=== PATIENT | female | born 1950 | race Caucasian/White ===

== ENCOUNTER 2017-02-13 08:19 | Emergency (ER) | payer OTHER ==
[2017-02-13] MEDS ORDERED: ZOFRAN ODT PO ONE (08:45)
--- NOTE | 2017-02-13 08:50 | PROVIDER DOCUMENTATION ---
HPI-Headache - General Chief Complaint: Numbness Stated Complaint: LEFT ARM NUMBNESS,NAUSEA Time Seen by Provider: 02/13/17 08:35 Source: patient Allergies/Adverse Reactions: Patient Allergies Allergy/AdvReac Type Severity Reaction Status Date / Time sumatriptan [From Imitrex] AdvReac Unknown Verified 02/13/17 16:02 sumatriptan succinate * AdvReac Unknown Verified 02/13/17 16:02 [From Imitrex] Home Medications: Home Medication List Medication Instructions Recorded Confirmed Last Taken Type No Home Medications 02/13/17 02/13/17 Unknown History - History of Present Illness-Headache Nature of Presenting Problem: Pt has always had headaches, but they became more prominent after she reached menopause at age 52. She usually just takes otc meds for them but this headache is a 10/10 headache and she has numbness of the left arm but normal strength. She freqeuntly has an aura prior ot with the headache but was asleep last night when her MALONE started at 0200. She is just now getting set up to get a doctor as she will be 67 in 9 days. Review of Systems - Adult - REVIEW OF SYSTEMS - ADULT Constitutional: denies: fever Eyes: reports: other (sort of always has a drppy left eyelid). denies: no symptoms reported, discharge, blurred vision Ears, Nose, Mouth & Throat: denies: ear pain, nose pain, throat pain Cardiovascular: denies: chest pain, heart murmur, syncope Respiratory: denies: chronic cough, pleurisy, shortness of breath Gastrointestinal: denies: abdominal pain, constipation, diarrhea, nausea, vomiting Genitourinary: denies: discharge, hematuria, urgency Musculoskeletal: denies: bone pain, back pain, joint pain, neck pain Integumentary: denies: itching, mole changes, rash Neurological: reports: headache/migraines, paresthesia. denies: dizziness/ vertigo, loss of balance, syncope, tremors Psychiatric: reports: no symptoms reported Endocrine: denies: goiter, cold intolerance, heat intolerance Hematologic/Lymphatic: denies: low blood count, lymphedema Allergic/Immunologic: denies: eczema, frequent infections, hives Past History - Adult - PAST MEDICAL HISTORY-ADULT Review of Records: reports: Nursing Assessment Review, Medications Reviewed Major Childhood Illnesses: reports: denies history Cardiovascular: reports: denies history Respiratory: reports: denies history Gastrointestinal: reports: denies history Obstetrical/Gynecological: reports: denies history Genitourinary: reports: denies history Musculoskeletal: reports: denies history Neurological: reports: TIA Endocrine/Immune: reports: denies history Other Conditions: reports: denies history - PRIOR SURGERIES/PROCEDURES Surgical/Procedure History: reports: BTL - FAMILY HISTORY Family History: reviewed, not pertinent Physical Exam- Neurological - Physical Exam-Neuro Initial Vital Signs Reviewed: Yes General Appearance: alert, no apparent distress Eye Exam: bilateral eye: normal inspection, PERRL, EOMI HENMT: normocephalic/atraumatic, moist mucous membranes, normal ENT inspection, pharynx normal Head Injury: no evidence of injury Neck: non-tender, full range of motion, supple Respiratory: chest non-tender, lungs clear, normal breath sounds, no pleuratic chest pain, no respiratory distress, no accessory muscle use Cardiovascular: normal peripheral pulses, regular rate, rhythm, no edema, no gallop, no JVD, no murmur Abdominal Exam: normal bowel sounds, non tender, soft, no organomegaly Lymphatic: 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 Exam: normal hearing, normal speech, PERRL Coordination/Gait: normal gait Motor/Sensory: no motor deficit, no sensory deficit, other (left arm/hand paresthesias) Neurologic: catheter finisher and inspector II-XII nml as tested, grossly normal, no motor/sensory deficits - Glascow Coma Scale Best Eye Response: (4) open spontaneously Best Verbal Response: (5) oriented Best Motor Response: (6) obeys commands Total Glascow Score: 15 Departure - Departure Time of Disposition Order: 16:20 DIAGNOSIS: Angina at rest Migraine Qualifiers: Migraine type: unspecified Status migrainosus presence: without status migrainosus Intractability: not intractable Qualified Code(s): G43.909 - Migraine, unspecified, not intractable, without status migrainosus Disposition: HOME 01 Certified Medical Emergency: Emergent Condition: Stable Additional Instructions: Fu for coronary evaluation from positive stress test from imitrex [place] [address] Mathias ED Follow Up Instructions: You have been treated by a care provider in the Emergency Department. These instructions are being provided to you so you can have an understanding of how to care for yourself upon discharge. Upon discharge from the Emergency Department, you are responsible for making arrangements for follow-up care by a physician of your choice. Take all prescribed medications as directed. Return to the Emergency Department immediately for any new or worsening symptoms. You may call the Physician Referral phone number at [phone] to obtain a list of Physicians who are taking new patients.
[2017-02-13 08:59] LABS: URINE CULTURE NEEDED? NO; URINE MICRO REVIEW NEEDED? NO; URINE SOURCE CLEAN CATCH
[2017-02-13 09:05] LABS: BILIRUBIN URINE NEGATIVE (NEGATIVE); BLOOD URINE NEGATIVE (NEGATIVE); COLOR STRAW; GLUCOSE URINE NEGATIVE (NEGATIVE); LEUKOCYTES URINE NEGATIVE (NEGATIVE); NITRITE URINE NEGATIVE (NEGATIVE); PROTEIN URINE NEGATIVE (NEGATIVE); SP GRAVITY URINE 1.001; TURBIDITY URINE CLEAR (CLEAR); UROBILINOGEN URINE NORMAL (NORMAL)
[2017-02-13 09:27] LABS: MANUAL DIFF NEEDED? NO
[2017-02-13 09:28] LABS: BASO% 0.6 % (0.0-0.8); EOS# 0.25 X1000 (0.0-0.7); EOS% 3.6 % (0.0-10.0); HEMOGLOBIN 13.9 g/dL (12.0-16.0); IMM GRAN# 0.03 X1000 (0.0-0.04); IMM GRAN% 0.4 % (0.0-0.5); LYMPH# 3.19 X1000 (1.2-3.4); LYMPH% 46.1 % (20.5-51.1); MCH 29.5 PG (27-31); MCHC 33.9 g/dL (33-37); MONO# 0.78 X1000 (0.11-0.59); MONO% 11.3 % (1.7-9.3); MPV 9.3 FL (7.4-10.4); PLT 306 X1000 (130-400); RBC 4.71 XMIL (4.2-5.4)
[2017-02-13 09:41] LABS: UR EPITHELIAL CELLS >10 /HPF (<10); URINE BACTERIA NEGATIVE /HPF; URINE RBC <10 /HPF (<10); URINE WBC <10 /HPF (<10)
[2017-02-13] MEDS ORDERED: IMITREX SUBQ ONE (09:41)
[2017-02-13 09:48] LABS: AGAP 13; ALKALINE PHOSPHATASE 103 U/L (32-104); BUN 17 mg/dL (8-22); CALCIUM 8.9 mg/dL (8.8-10.2); CHLORIDE 101 mmol/L (98-107); COSMO 282; GOT 30 U/L (10-30); GPT 33 U/L (10-36); POTASSIUM 4.2 mmol/L (3.5-5.1); SODIUM 140 mmol/L (136-145); TCO2 26 mmol/L (25-35); TOTAL BILIRUBIN 0.41 mg/dL (0.20-1.00); TOTAL PROTEIN 7.3 g/dL (6.3-8.3)
--- NOTE | 2017-02-13 10:17 | Diag Imaging Result Document ---
PROCEDURE NAME: HEAD W/O CONTRAST - 02/13/2017 CT HEAD WITHOUT CONTRAST: COMPARISON: None available. FINDINGS: There is mild patchy low attenuation in the periventricular white matter suggesting mild microangiopathy. There is no evidence of acute infarct given the limited sensitivity of CT versus MRI. There is no discrete intracranial mass, mass effect, or intracranial hemorrhage. Surrounding soft tissues and bony structures are grossly unremarkable. IMPRESSION: Suggestion of mild white matter microangiopathy. No definite acute intracranial pathology.
[2017-02-13] MEDS ORDERED: ASPIRIN PO ONE (10:26)
[2017-02-13] MEDS ORDERED: PHENERGAN IM ONE (10:49)
[2017-02-13] MEDS ORDERED: NUBAIN IM ONE (10:49)
--- NOTE | 2017-02-13 10:56 | ED EKG INTERP ---
EKG Interpretation - EKG Time of EKG reading by physician:: 08:25 EKG Read and Signed by:: David Singh EKG Interpretation (*Must complete 3 of following elements*): Abnormal Rate: 69 (nonspecific T wave abnormality ) Rhythm: NSR - EKG # 2 Time of EKG reading by physician:: 10:13 EKG Read and Signed by:: David Singh EKG Interpretation (*Must complete 3 of following elements*): Abnormal Rate: 78 (ST and T wave abnormality, consider inferior ischemia; ST and T wave abnormality, consider anterolateral ischemia) Rhythm: NSR Attestation - Scribe Verification/Attestation Scribe:: Kailey Overton Acting as Scribe for:: aDvid Singh Scribe documention review:: This chart was documented by a scribe and accurately reflects the service the provider performed and the decisions made by the provider.
[2017-02-13] MEDS ORDERED: DILANTIN PO ONE (14:09)
[2017-02-13 16:14] VITALS: BP 127/94
--- NOTE | 2017-02-14 05:39 | EKG Report ---
Test Performed on : 02/13/2017 2:34:10 PM Test Reason : cp Blood Pressure : / mmHG Vent. Rate : 067 BPM Atrial Rate : 067 BPM P-R Int : 144 ms QRS Dur : 078 ms QT Int : 438 ms P-R-T Axes : 016 037 168 degrees QTc Int : 462 ms Normal sinus rhythm. Nonspecific T wave abnormality Abnormal ECG When compared with ECG of 13-FEB-2017 10:13, (Unconfirmed) ST no longer depressed in Inferior leads Nonspecific T wave abnormality has replaced inverted T waves in Inferior leads T wave inversion no longer evident in Anterior leads Unconfirmed Result
--- NOTE | 2017-02-14 05:42 | EKG Report ---
Test Performed on : 02/13/2017 10:13:10 AM Test Reason : CHEST PAIN Blood Pressure : / mmHG Vent. Rate : 078 BPM Atrial Rate : 078 BPM P-R Int : 164 ms QRS Dur : 082 ms QT Int : 386 ms P-R-T Axes : 015 060 236 degrees QTc Int : 440 ms Normal sinus rhythm. ST & T wave abnormality, consider inferior ischemia ST & T wave abnormality, consider anterolateral ischemia Abnormal ECG When compared with ECG of 13-FEB-2017 08:25, (Unconfirmed) ST now depressed in Inferior leads ST now depressed in Anterior leads Inverted T waves have replaced nonspecific T wave abnormality in Inferior leads T wave inversion now evident in Anterior leads Unconfirmed Result
--- NOTE | 2017-02-14 05:42 | EKG Report ---
Test Performed on : 02/13/2017 08:25:53 AM Test Reason : left arm numbeness Blood Pressure : / mmHG Vent. Rate : 069 BPM Atrial Rate : 069 BPM P-R Int : 156 ms QRS Dur : 076 ms QT Int : 426 ms P-R-T Axes : 037 047 109 degrees QTc Int : 456 ms Normal sinus rhythm. Nonspecific T wave abnormality Abnormal ECG No previous ECGs available Unconfirmed Result
== END 2017-02-13 17:21 | disposition home or self-care (01) ==
LOC: ED 08:19
DX: G43.909 Migraine, unspecified, not intractable, without status migrainosus (principal); I20.8 Other forms of angina pectoris; R94.31 Abnormal electrocardiogram [ECG] [EKG]; R20.0 Anesthesia of skin; R11.0 Nausea; R51 Headache; H02.402 Unspecified ptosis of left eyelid; Z86.73 Personal history of transient ischemic attack (TIA), and cerebral infarction without residual deficits
CPT/HCPCS: 70450; 80053; 81001; 82550; 84484; 85025; 93005; 96372; J2300; J2550; J3030